=== PATIENT | female | born 1955 | race Hispanic/Latino ===

== ENCOUNTER → 2019-01-11 | Outpatient (CLI) | payer OTHER, MEDICARE | END | disposition home or self-care (01) | LOC: OIH 09:58 | PROVIDERS: ATTEND Internal Medicine | DX: M85.842 Other specified disorders of bone density and structure, left hand (principal); M85.841 Other specified disorders of bone density and structure, right hand; M89.8X4 Other specified disorders of bone, hand; M17.0 Bilateral primary osteoarthritis of knee; M06.4 Inflammatory polyarthropathy | CPT/HCPCS: 73130; 73560 ==